=== PATIENT | female | born 1995 | race Caucasian/White ===

== ENCOUNTER 2019-06-30 15:03 | Emergency (ER) | payer SELFPAY ==
[~2019-06-30] VITALS: Ht 160 cm; Wt 106.8 kg
[2019-06-30 15:07] VITALS: BP 123/70; TEMP 98.7
[2019-06-30 16:48] LABS: BASO # 0.1 (0.0-0.2); BASO % 0.5 % (0.0-2.0); EOS # 0.3 (0.0-0.7); EOS % 2.1 % (0-4.0); GRAN # 10.1 (1.4-6.5); GRAN % 69.5 % (42.2-75.2); HEMATOCRIT 37.3 % (37.0-47.0); HEMOGLOBIN 12.4 g/dl (12.5-16.0); LYMPH % 20.7 % (20.0-51.0); MEAN CELL VOLUME 86 fl (80.0-100.0); MEAN CORPUSCULAR HEMOGLOBIN 28 pg (27.0-31.0); MEAN CORPUSCULAR HGB CONC 33 g/dl (33.0-37.0); MEAN PLATELET VOLUME 9.5 fl (7.4-10.4); MONO % 6.7 % (1.7-9.3); PLATELET COUNT 451 K/mm3 (130-400); RED BLOOD COUNT 4.36 M/mm3 (4.10-5.30); REDCELL DISTRIBUTION WIDTH-CV 12.2 % (11.5-14.5)
[2019-06-30 17:17] LABS: ALANINE AMINOTRANSFERASE < 6 U/L (9-52); ALBUMIN 4.2 gm/dL (3.5-5.0); ALKALINE PHOSPHATASE 69 U/L (50-136); ANION GAP 11 mmol/L (7-16); AST,SGOT 21 U/L (15-37); BILIRUBIN,TOTAL 0.2 mg/dL (0.0-1.0); BLOOD UREA NITROGEN 10 mg/dL (7-17); CALCIUM 9.2 mg/dL (8.4-10.2); CARBON DIOXIDE 23 mmol/L (22-30); CHLORIDE 106 mmol/L (98-107); CREATININE, serum 0.85 (0.52-1.25); GLUCOSE 82 mg/dL (74-106); POTASSIUM 4.4 mmol/L (3.4-5.0); SODIUM 140 mmol/L (137-145); TOTAL PROTEIN 7.8 gm/dL (6.4-8.2)
[2019-06-30 17:29] LABS: COLLECTION METHOD CLEAN CATCH
[2019-06-30 17:51] LABS: MUCOUS Present /lpf; PH 5 (5-8); URINE APPEARANCE Hazy; URINE BACTERIA None Seen /hpf; URINE BILIRUBIN Negative (NEGATIVE); URINE BLOOD 3+ (NEGATIVE); URINE COLOR Yellow; URINE GLUCOSE Negative (NEGATIVE); URINE KETONE Negative (NEGATIVE); URINE LEUKOCYTE ESTERASE Negative (NEGATIVE); URINE NITRATE Negative (NEGATIVE); URINE PROTEIN(semi-quant) 1+ (NEGATIVE); URINE RBC 0-2 /hpf; URINE UROBILINOGEN Negative (NEGATIVE)
[2019-06-30] MEDS ORDERED: ZOFRAN ODT4 MG PO (19:34)
[2019-06-30] MEDS ORDERED: NORCO 325 MG-51 TAB PO (19:34)
[2019-06-30 20:02] VITALS: PULSE 94
== END 2019-06-30 19:58 | disposition home or self-care (01) ==
LOC: COL.ER 15:03
PROVIDERS: Emergency Medicine
DX: O20.0 Threatened abortion (principal); Z3A.00 Weeks of gestation of pregnancy not specified
CPT/HCPCS: J1885; J2270; J2405; J7030

== ENCOUNTER 2019-07-02 04:40 | Emergency (ER) | payer SELFPAY ==
[~2019-07-02] VITALS: Ht 160 cm; Wt 106.8 kg
[~2019-07-02 04:40] MED LIST: NORCO 325 MG-51 TAB PO; ZOFRAN ODT4 MG PO
[2019-07-02 05:23] LABS: BASO # 0.1 (0.0-0.2); BASO % 0.4 % (0.0-2.0); EOS # 0.5 (0.0-0.7); EOS % 3.8 % (0-4.0); GRAN # 7.4 (1.4-6.5); GRAN % 63.4 % (42.2-75.2); HEMOGLOBIN 11.9 g/dl (12.5-16.0); LYMPH # 3.1 (1.2-3.4); LYMPH % 25.9 % (20.0-51.0); MEAN CELL VOLUME 85 fl (80.0-100.0); MEAN CORPUSCULAR HEMOGLOBIN 29 pg (27.0-31.0); MEAN CORPUSCULAR HGB CONC 34 g/dl (33.0-37.0); MEAN PLATELET VOLUME 9.6 fl (7.4-10.4); MONO # 0.7 (0.1-0.6); MONO % 6.1 % (1.7-9.3); PLATELET COUNT 401 K/mm3 (130-400); RED BLOOD COUNT 4.16 M/mm3 (4.10-5.30); REDCELL DISTRIBUTION WIDTH-CV 12.3 % (11.5-14.5)
[2019-07-02 05:29] LABS: HEMATOCRIT 35.3 % (37.0-47.0)
[2019-07-02 05:33] LABS: ALANINE AMINOTRANSFERASE < 6 U/L (9-52); ALBUMIN 3.9 gm/dL (3.5-5.0); ALKALINE PHOSPHATASE 62 U/L (50-136); ANION GAP 14 mmol/L (7-16); AST,SGOT 15 U/L (15-37); BILIRUBIN,TOTAL 0.2 mg/dL (0.0-1.0); BLOOD UREA NITROGEN 8 mg/dL (7-17); CALCIUM 9.1 mg/dL (8.4-10.2); CARBON DIOXIDE 21 mmol/L (22-30); CHLORIDE 106 mmol/L (98-107); CREATININE, serum 0.75 (0.52-1.25); GLUCOSE 118 mg/dL (74-106); POTASSIUM 4.1 mmol/L (3.4-5.0); SODIUM 141 mmol/L (137-145); TOTAL PROTEIN 7.2 gm/dL (6.4-8.2)
[2019-07-02 05:53] LABS: HCG,QUANTITATIVE 591 mIU/mL (0-5)
[2019-07-02] MEDS ORDERED: DULCOLAX STOOL100 MG PO (06:11)
[2019-07-02] MEDS ORDERED: MIRALAX238G PO (06:11)
[2019-07-02 06:40] VITALS: BP 123/70; PULSE 77; TEMP 98.9
== END 2019-07-02 06:48 | disposition home or self-care (01) ==
LOC: COL.ER 04:40
PROVIDERS: Emergency Medicine
DX: O03.9 Complete or unspecified spontaneous abortion without complication (principal); K59.00 Constipation, unspecified
CPT/HCPCS: J2765; J3010

== ENCOUNTER 2019-07-05 10:06 | Emergency (ER) | payer SELFPAY ==
[~2019-07-05] VITALS: Ht 157.5 cm; Wt 106.8 kg
[~2019-07-05 10:06] MED LIST changes: +DULCOLAX STOOL100 MG PO; +MIRALAX238G PO
[2019-07-05 10:28] VITALS: TEMP 98.2
[2019-07-05 11:47] LABS: BASO % 0.4 % (0.0-2.0); EOS # 0.2 (0.0-0.7); EOS % 2.2 % (0-4.0); GRAN # 6.9 (1.4-6.5); GRAN % 71.6 % (42.2-75.2); HEMATOCRIT 34.2 % (37.0-47.0); HEMOGLOBIN 11.5 g/dl (12.5-16.0); LYMPH # 1.9 (1.2-3.4); LYMPH % 19.6 % (20.0-51.0); MEAN CELL VOLUME 85 fl (80.0-100.0); MEAN CORPUSCULAR HEMOGLOBIN 29 pg (27.0-31.0); MEAN CORPUSCULAR HGB CONC 34 g/dl (33.0-37.0); MEAN PLATELET VOLUME 9.8 fl (7.4-10.4); MONO # 0.6 (0.1-0.6); MONO % 5.9 % (1.7-9.3); PLATELET COUNT 409 K/mm3 (130-400); RED BLOOD COUNT 4.01 M/mm3 (4.10-5.30); REDCELL DISTRIBUTION WIDTH-CV 12.4 % (11.5-14.5)
[2019-07-05 11:54] LABS: COLLECTION METHOD CLEAN CATCH
[2019-07-05 12:00] LABS: ALANINE AMINOTRANSFERASE < 6 U/L (9-52); ALKALINE PHOSPHATASE 63 U/L (50-136); ANION GAP 11 mmol/L (7-16); AST,SGOT 23 U/L (15-37); BILIRUBIN,TOTAL 0.3 mg/dL (0.0-1.0); BLOOD UREA NITROGEN 11 mg/dL (7-17); C-REACTIVE PROTEIN 1.6 mg/dL (0.0-0.9); CALCIUM 8.9 mg/dL (8.4-10.2); CARBON DIOXIDE 20 mmol/L (22-30); CHLORIDE 108 mmol/L (98-107); CREATININE, serum 0.71 (0.52-1.25); GLUCOSE 106 mg/dL (74-106); POTASSIUM 4.4 mmol/L (3.4-5.0); SODIUM 140 mmol/L (137-145); TOTAL PROTEIN 7.3 gm/dL (6.4-8.2)
[2019-07-05 12:04] LABS: MUCOUS Present /lpf; PH 5 (5-8); URINE APPEARANCE Cloudy; URINE BACTERIA None Seen /hpf; URINE BILIRUBIN Negative (NEGATIVE); URINE BLOOD 3+ (NEGATIVE); URINE COLOR Yellow; URINE GLUCOSE Negative (NEGATIVE); URINE KETONE Negative (NEGATIVE); URINE LEUKOCYTE ESTERASE Negative (NEGATIVE); URINE NITRATE Negative (NEGATIVE); URINE PROTEIN(semi-quant) 2+ (NEGATIVE); URINE RBC >50 /hpf; URINE UROBILINOGEN Negative (NEGATIVE)
[2019-07-05 12:14] LABS: HCG,QUANTITATIVE 763 mIU/mL (0-5)
[2019-07-05 13:17] VITALS: BP 128/74; PULSE 76
== END 2019-07-05 13:25 | disposition home or self-care (01) ==
LOC: COL.ER 10:06
PROVIDERS: Family Medicine
DX: N93.9 Abnormal uterine and vaginal bleeding, unspecified (principal)
CPT/HCPCS: J2405; J7030

== ENCOUNTER 2019-08-21 08:20 | Emergency (ER) | payer SELFPAY ==
[~2019-08-21] VITALS: Ht 157.5 cm; Wt 104.5 kg
[2019-08-21 08:26] VITALS: BP 167/74; TEMP 98.5
[2019-08-21 09:18] VITALS: PULSE 88
== END 2019-08-21 09:20 | disposition home or self-care (01) ==
LOC: COL.ER 08:20
PROVIDERS: Physician Assistant
DX: R11.2 Nausea with vomiting, unspecified (principal)

== ENCOUNTER 2019-10-27 08:18 | Emergency (ER) | payer SELFPAY ==
[~2019-10-27] VITALS: Ht 157.5 cm; Wt 109.1 kg
[2019-10-27 08:26] VITALS: BP 130/81; TEMP 100
[2019-10-27] MEDS ORDERED: TRI-SPRINTEC 281 TAB PO (08:52)
[2019-10-27 09:24] LABS: STREP SCREEN NEGATIVE
[2019-10-27] MEDS ORDERED: NORCOELIX PO (09:40)
[2019-10-27 11:10] VITALS: PULSE 88
== END 2019-10-27 11:10 | disposition home or self-care (01) ==
LOC: COL.ER 08:18
PROVIDERS: Physician Assistant
DX: J11.1 Influenza due to unidentified influenza virus with other respiratory manifestations (principal)

== ENCOUNTER 2020-02-06 20:46 | Emergency (ER) | payer SELFPAY ==
[~2020-02-06] VITALS: Ht 157.5 cm; Wt 113.6 kg
[~2020-02-06 20:46] MED LIST changes: +NORCOELIX PO; +TRI-SPRINTEC 281 TAB PO
[2020-02-06 20:51] VITALS: BP 132/79; PULSE 86; TEMP 97.8
[2020-02-06] MEDS ORDERED: NORCO 325 MG-51 TAB PO (21:12)
[2020-02-06] MEDS ORDERED: AMOXICILLIN 50500 MG PO (21:12)
[2020-02-06] MEDS ORDERED: ZOFRAN ODT4 MG PO (21:12)
== END 2020-02-06 21:32 | disposition home or self-care (01) ==
LOC: COL.ER 20:46
DX: K08.89 Other specified disorders of teeth and supporting structures (principal); J02.9 Acute pharyngitis, unspecified

== ENCOUNTER 2020-02-21 19:51 | Emergency (ER) | payer SELFPAY ==
[~2020-02-21] VITALS: Ht 157.5 cm; Wt 113.6 kg
[~2020-02-21 19:51] MED LIST changes: +AMOXICILLIN 50500 MG PO
[2020-02-21 19:54] VITALS: BP 145/83; TEMP 99
[2020-02-21] MEDS ORDERED: NORCO 325 MG-51 TAB PO (21:24)
[2020-02-21 21:49] VITALS: PULSE 96
== END 2020-02-21 21:49 | disposition home or self-care (01) ==
LOC: COL.ER 19:51
DX: T15.02XA Foreign body in cornea, left eye, initial encounter (principal); E66.9 Obesity, unspecified

== ENCOUNTER 2021-06-15 08:31 | Emergency (ER) | payer SELFPAY ==
[~2021-06-15] VITALS: Ht 157.5 cm; Wt 140.9 kg
[2021-06-15 08:44] VITALS: TEMP 98.4
[2021-06-15] MEDS ORDERED: CELEXA 20MG20 MG/TAB PO (08:44)
[2021-06-15 09:22] LABS: STREP SCREEN NEGATIVE
[2021-06-15 09:40] VITALS: BP 133/99; PULSE 79
== END 2021-06-15 09:40 | disposition home or self-care (01) ==
LOC: COL.ER 08:31
PROVIDERS: Emergency Medicine
DX: J02.9 Acute pharyngitis, unspecified (principal); Z20.822 Contact with and (suspected) exposure to COVID-19

== ENCOUNTER 2022-02-15 22:19 | Emergency (ER) | payer SELFPAY ==
[~2022-02-15] VITALS: Ht 160 cm; Wt 141.8 kg
[~2022-02-15 22:19] MED LIST changes: +CELEXA 20MG20 MG/TAB PO
[2022-02-15 22:34] VITALS: TEMP 98
[2022-02-15 22:59] LABS: COLLECTION METHOD CLEAN CATCH
[2022-02-15 23:08] LABS: MUCOUS Present (NOT PRESENT); PH 5 (5-8); SQUAMOUS EPITHELIAL 0-2 /hpf (0-10); URINE APPEARANCE Hazy (CLEAR/HAZY); URINE BACTERIA None Seen /hpf (NONE SEEN); URINE BILIRUBIN Negative (NEGATIVE); URINE BLOOD Negative (NEGATIVE); URINE CALCIUM OXALATE CRYSTAL Present (NOT PRESENT); URINE COLOR Yellow (YELLOW); URINE GLUCOSE Negative (NEGATIVE); URINE KETONE Trace (NEGATIVE); URINE LEUKOCYTE ESTERASE Negative (NEGATIVE); URINE NITRATE Negative (NEGATIVE); URINE PROTEIN(semi-quant) Negative (NEGATIVE); URINE RBC 0-2 /hpf (0-2); URINE UROBILINOGEN Negative (NEGATIVE)
[2022-02-15 23:26] LABS: BASO # 0.1 K/mm3 (0.0-0.2); BASO % 0.5 % (0.0-2.0); EOS # 0.2 K/mm3 (0.0-0.7); EOS % 1.8 % (0.0-4.0); GRAN # 7.8 K/mm3 (1.4-6.5); GRAN % 63.8 % (42.2-75.2); HEMOGLOBIN 11.4 g/dl (12.5-16.0); LYMPH # 3.4 K/mm3 (1.2-3.4); LYMPH % 27.8 % (20.0-51.0); MEAN CELL VOLUME 83 fl (80.0-100.0); MEAN CORPUSCULAR HEMOGLOBIN 28 pg (27-31); MEAN CORPUSCULAR HGB CONC 34 g/dl (33.0-37.0); MONO # 0.7 K/mm3 (0.1-0.6); MONO % 5.8 % (1.7-9.3); PLATELET COUNT 407 K/mm3 (130-400); REDCELL DISTRIBUTION WIDTH-CV 12.4 % (11.5-14.5)
[2022-02-15 23:44] LABS: ALBUMIN 3.6 gm/dL (3.5-5.0); BILIRUBIN,TOTAL 0.3 mg/dL (0.2-1.2); CALCIUM 8.8 mg/dL (8.4-10.2); CREATININE, serum 0.96 mg/dL (0.57-1.11); TOTAL PROTEIN 7.3 gm/dL (6.2-8.1)
[2022-02-16] MEDS ORDERED: FLEXERIL 1010 MG/TAB PO (01:12)
[2022-02-16 01:37] VITALS: BP 144/70; PULSE 76
== END 2022-02-16 01:37 | disposition home or self-care (01) ==
LOC: COL.ER 22:19
PROVIDERS: Physician Assistant
DX: D64.9 Anemia, unspecified (principal); R79.1 Abnormal coagulation profile; E66.9 Obesity, unspecified; F17.200 Nicotine dependence, unspecified, uncomplicated; Z86.16 Personal history of COVID-19
CPT/HCPCS: Q9967

== ENCOUNTER 2023-09-27 11:05 | Emergency (ER) | payer SELFPAY ==
[~2023-09-27] VITALS: Ht 157.5 cm; Wt 140.9 kg
[~2023-09-27 11:05] MED LIST changes: +FLEXERIL 1010 MG/TAB PO; +VICTOZA6 MG/ML SQ
[2023-09-27] MEDS ORDERED: ESTARYLLA 35 MC1 TAB PO (12:58)
[2023-09-27] MEDS ORDERED: ATARAX 25MG25 MG/TAB PO (12:59)
[2023-09-27 13:14] LABS: BASO # 0.1 K/mm3 (0.0-0.2); BASO % 0.5 % (0.0-2.0); EOS # 0.2 K/mm3 (0.0-0.7); EOS % 2.5 % (0.0-4.0); GRAN % 61.2 % (42.2-75.2); HEMATOCRIT 37.1 % (37.0-47.0); HEMOGLOBIN 12.3 g/dl (12.5-16.0); LYMPH # 2.9 K/mm3 (1.2-3.4); LYMPH % 29.5 % (20.0-51.0); MEAN CELL VOLUME 84 fl (80.0-100.0); MEAN CORPUSCULAR HEMOGLOBIN 28 pg (27-31); MEAN CORPUSCULAR HGB CONC 33 g/dl (33.0-37.0); MEAN PLATELET VOLUME 9.1 fl (7.4-10.4); MONO # 0.6 K/mm3 (0.1-0.6); MONO % 5.9 % (1.7-9.3); PLATELET COUNT 431 K/mm3 (130-400); RED BLOOD COUNT 4.42 M/mm3 (4.10-5.30); REDCELL DISTRIBUTION WIDTH-CV 12.1 % (11.5-14.5)
[2023-09-27 13:25] LABS: ALBUMIN 3.5 gm/dL (3.5-5.0); BILIRUBIN,TOTAL 0.3 mg/dL (0.2-1.2); CALCIUM 8.9 mg/dL (8.4-10.2); CREATININE, serum 0.77 mg/dL (0.57-1.11); TOTAL PROTEIN 7.3 gm/dL (6.2-8.1)
[2023-09-27 14:40] VITALS: BP 106/69; PULSE 88; TEMP 97.2
== END 2023-09-27 14:40 | disposition home or self-care (01) ==
LOC: COL.ER 11:05
PROVIDERS: Physician Assistant
DX: G43.909 Migraine, unspecified, not intractable, without status migrainosus (principal); N92.0 Excessive and frequent menstruation with regular cycle
CPT/HCPCS: J1200; J1885; J2765; J7030

== ENCOUNTER 2024-08-08 20:10 | Emergency (ER) | payer SELFPAY ==
[~2024-08-08] VITALS: Ht 157.5 cm; Wt 142.7 kg
[~2024-08-08 20:10] MED LIST changes: +ATARAX 25MG25 MG/TAB PO; +ESTARYLLA 35 MC1 TAB PO
[2024-08-08 20:20] VITALS: TEMP 98.6
[2024-08-08 21:39] LABS: BASO # 0.1 K/mm3 (0.0-0.2); BASO % 0.5 % (0.0-2.0); EOS # 0.3 K/mm3 (0.0-0.7); EOS % 2.1 % (0.0-4.0); GRAN % 61.9 % (42.2-75.2); HEMOGLOBIN 13.1 g/dl (12.5-16.0); LYMPH # 3.7 K/mm3 (1.2-3.4); LYMPH % 28.4 % (20.0-51.0); MEAN CELL VOLUME 86 fl (80.0-100.0); MEAN CORPUSCULAR HEMOGLOBIN 29 pg (27-31); MEAN CORPUSCULAR HGB CONC 34 g/dl (33.0-37.0); MEAN PLATELET VOLUME 9.1 fl (7.4-10.4); MONO # 0.8 K/mm3 (0.1-0.6); MONO % 6.5 % (1.7-9.3); PLATELET COUNT 388 K/mm3 (130-400); RED BLOOD COUNT 4.52 M/mm3 (4.10-5.30); REDCELL DISTRIBUTION WIDTH-CV 12.2 % (11.5-14.5)
[2024-08-08 22:15] LABS: ALBUMIN 3.8 g/dL (3.5-5.0); BILIRUBIN,TOTAL 0.3 mg/dL (0.2-1.2); CALCIUM 9.5 mg/dL (8.4-10.2); CREATININE, serum 0.8 mg/dL (0.57-1.11); TOTAL PROTEIN 7.7 g/dl (6.2-8.1)
[2024-08-08 22:22] LABS: TROPONIN-I 0.017 ng/mL (0.00-0.033)
[2024-08-08] MEDS ORDERED: NS 50 ML IV SCH (22:44)
[2024-08-08] MEDS ORDERED: Iohexol 300 - 100 ML VIAL IV ONE (22:44)
[2024-08-09 00:37] VITALS: BP 115/66; PULSE 81
== END 2024-08-09 00:38 | disposition home or self-care (01) ==
LOC: COL.ER 20:10
PROVIDERS: Nurse Practitioner Primary Care
DX: R07.89 Other chest pain (principal); R10.12 Left upper quadrant pain; R10.13 Epigastric pain
CPT/HCPCS: Q9967